=== PATIENT | male | born 1960 | race Caucasian/White ===

== ENCOUNTER 2021-08-31 14:03 | Day surgery (SDC) | payer OTHER ==
[2021-08-24 09:24] VITALS: BMI 35.1
[2021-08-31] MEDS: CELECOXIB 200 MG CAPSULE PO ONE ×2 (06:45→13:01)
[2021-08-31] MEDS: ACETAMINOPHEN 500 MG TABLET (FP) PO SCH ×3 (11:00→20:13)
[2021-08-31] MEDS: SENNOSIDES/DOCUSATE COMBO (SENNA PLUS) TABLET (UD) PO SCH ×2 (13:01→22:04)
[2021-08-31] MEDS: RAMIPRIL 5 MG CAPSULE PO SCH (13:01)
[2021-08-31] MEDS: PANTOPRAZOLE 40 MG TABLET PO SCH (13:02)
[2021-08-31] MEDS: INSULIN SLIDING SCALE (NOVOLOG) 1 VIAL SQ SCH ×3 (13:02→22:03)
[2021-08-31] MEDS: MULTIVITAMINS (DAILY MVI) TABLET (FP) PO SCH (13:02)
[~2021-08-31 14:03] MED LIST: ACETAMINOPHEN 1000 MG/100 ML VIAL IVPB ONE; ACETAMINOPHEN INJECTION 100 ML IVPB ONE; CEFAZOLIN 3 GM in DEXTROSE 5%-WATER - 100 ML IVPB ONE; LACTATED RINGERS SOLUTION 1,000 ML IV SCH; MAG HYDROX/AL HYDROX/SIMETH 30 ML UNIT-DOSE CUP PO PRN; MAGNESIUM HYDROX 2400MG/30ML ORAL SUSPENSION 30 ML CUP PO PRN; MIDAZOLAM HCL 2 MG/2 ML SINGLE DOSE VIAL ONE; ONDANSETRON 4 MG/2 ML VIAL IVPUSH PRN; PROPOFOL 20 ML ONE; ROPIVACAINE HCL 0.5% 30ML VIAL ONE; TRANEXAMIC ACID 1000 MG/10 ML VIAL IVPUSH ONE; ePHEDrine SULFATE 50 MG/1 ML AMPULE ONE
[2021-08-31] MEDS: metFORMIN HCL 500 MG TABLET (FP) PO SCH (16:02)
[2021-08-31] MEDS: KETOROLAC TROMETHAMINE 30 MG/1 ML VIAL IVPUSH SCH ×2 (16:02→21:58)
[2021-08-31] MEDS ORDERED: REFRIGERATED ANITBIOTICS ONE (16:06)
[2021-08-31] MEDS: CEFAZOLIN 3 GM in DEXTROSE 5%-WATER - 100 ML IVPB SCH (16:08)
[2021-08-31] MEDS: oxyCODONE HCL 5 MG TABLET PO PRN (20:46)
[2021-08-31] MEDS: ATORVASTATIN CA 80 MG TABLET (FP) PO SCH (21:58)
[2021-09-01] MEDS ORDERED: REFRIGERATED ANITBIOTICS ONE (00:14)
[2021-09-01] MEDS: ACETAMINOPHEN 500 MG TABLET (FP) PO SCH ×5 (00:16→23:53)
[2021-09-01] MEDS: CEFAZOLIN 3 GM in DEXTROSE 5%-WATER - 100 ML IVPB SCH (00:17)
[2021-09-01] MEDS: oxyCODONE HCL 5 MG TABLET PO PRN ×6 (05:22→22:52)
[2021-09-01] MEDS: metFORMIN HCL 500 MG TABLET (FP) PO SCH ×2 (06:02→17:13)
[2021-09-01] MEDS: INSULIN SLIDING SCALE (NOVOLOG) 1 VIAL SQ SCH ×4 (06:08→21:57)
[2021-09-01] MEDS: ASPIRIN 325 MG TABLET PO SCH (07:45)
[2021-09-01 08:40] LABS: HEMATOCRIT 35.3 % (35.4-49); HEMOGLOBIN 11.8 GM/dl (11.7-16.9); MCH 27.9 pg (25.7-33.7); MCHC 33.3 g/dl (32.0-35.9); MEAN CELL VOLUME 83.9 fl (80-96); MEAN PLT VOLUME 9.8 fl (7.5-11.1); PLATELET COUNT 187 10^3/uL (134-434); RBC 4.21 M/mm3 (4.00-5.60); RDW 13.8 % (11.9-15.9); WHITE BLOOD COUNT 10.2 K/mm3 (4.0-10.8)
[2021-09-01] MEDS: PANTOPRAZOLE 40 MG TABLET PO SCH (10:20)
[2021-09-01] MEDS: RAMIPRIL 5 MG CAPSULE PO SCH (10:20)
[2021-09-01] MEDS: SENNOSIDES/DOCUSATE COMBO (SENNA PLUS) TABLET (UD) PO SCH ×2 (10:20→21:53)
[2021-09-01] MEDS: MULTIVITAMINS (DAILY MVI) TABLET (FP) PO SCH (10:20)
[2021-09-01] MEDS: ATORVASTATIN CA 80 MG TABLET (FP) PO SCH (21:53)
[2021-09-02] MEDS: oxyCODONE HCL 5 MG TABLET PO PRN ×4 (04:48→16:53)
[2021-09-02] MEDS: ACETAMINOPHEN 500 MG TABLET (FP) PO SCH ×2 (06:19→12:24)
[2021-09-02] MEDS: metFORMIN HCL 500 MG TABLET (FP) PO SCH ×2 (06:19→16:57)
[2021-09-02] MEDS: INSULIN SLIDING SCALE (NOVOLOG) 1 VIAL SQ SCH ×3 (06:48→16:57)
[2021-09-02] MEDS: ASPIRIN 325 MG TABLET PO SCH (08:03)
[2021-09-02 08:19] LABS: HEMATOCRIT 34.4 % (35.4-49); HEMOGLOBIN 11.1 GM/dl (11.7-16.9); MCH 27.6 pg (25.7-33.7); MCHC 32.2 g/dl (32.0-35.9); MEAN CELL VOLUME 85.6 fl (80-96); MEAN PLT VOLUME 9.7 fl (7.5-11.1); PLATELET COUNT 186 10^3/uL (134-434); RBC 4.02 M/mm3 (4.00-5.60); RDW 14.3 % (11.9-15.9); WHITE BLOOD COUNT 9.9 K/mm3 (4.0-10.8)
[2021-09-02] MEDS: PANTOPRAZOLE 40 MG TABLET PO SCH (09:47)
[2021-09-02] MEDS: RAMIPRIL 5 MG CAPSULE PO SCH (09:47)
[2021-09-02] MEDS: SENNOSIDES/DOCUSATE COMBO (SENNA PLUS) TABLET (UD) PO SCH (09:47)
[2021-09-02] MEDS: MULTIVITAMINS (DAILY MVI) TABLET (FP) PO SCH (09:47)
[2021-09-02 14:13] VITALS: BP 117/70; PULSE 85; TEMP 98.6
== END 2021-09-02 18:00 | disposition home health service (06) ==
LOC: FM/S 14:03 → FASUSAT 14:03
PROVIDERS: ATTEND Orthopaedic Surgery
PROC: 8E0YXBZ Computer Assisted Procedure of Lower Extremity (ICD-10-PCS; 2021-08-31)
PROC: 8E0Y0CZ Robotic Assisted Procedure of Lower Extremity, Open Approach (ICD-10-PCS; 2021-08-31)
PROC: 0SRD0J9 Replacement of Left Knee Joint with Synthetic Substitute, Cemented, Open Approach (ICD-10-PCS; principal; 2021-08-31 08:40)
DX: M17.0 Bilateral primary osteoarthritis of knee (principal); I10 Essential (primary) hypertension; E11.9 Type 2 diabetes mellitus without complications; E78.5 Hyperlipidemia, unspecified; Z79.82 Long term (current) use of aspirin; Z79.84 Long term (current) use of oral hypoglycemic drugs
CPT/HCPCS: 20985; 27447; C1776; S2900; 36415; 73560-TC-LT-FY; 82962; 85027; 94010; 94760; 97010-GP; 97116-GP; 97163-GP; C9803; J0131; U0003; U0005

== ENCOUNTER 2023-05-02 06:09 | Day surgery (SDC) | payer OTHER ==
[2023-04-28 11:16] VITALS: BMI 41.8
[2023-05-02] MEDS ORDERED: CELECOXIB 200 MG CAPSULE ONE (06:32)
[2023-05-02] MEDS ORDERED: ceFAZolin SODIUM 1 GM VIAL ONE ×3 (07:19→12:47)
[2023-05-02] MEDS ORDERED: VANCOMYCIN 1,000 MG VIAL (RESTRICTED TO ID ONLY) ONE (07:20)
[2023-05-02] MEDS ORDERED: MIDAZOLAM HCL 2 MG/2 ML SINGLE DOSE VIAL ONE ×7 (07:43→12:37)
[2023-05-02] MEDS ORDERED: BUPIVACAINE HCL/PF 0.5% (5MG/ML) 10 ML VIAL ONE (07:43)
[2023-05-02] MEDS ORDERED: BUPIVACAINE LIPOSOME/PF (EXPAREL) 266 MG/20 ML VIAL ONE (07:43)
[2023-05-02] MEDS ORDERED: ONDANSETRON 4 MG/2 ML VIAL IVPUSH PRN ×2 (07:56→11:20)
[2023-05-02] MEDS ORDERED: MAG HYDROX/AL HYDROX/SIMETH 30 ML UNIT-DOSE CUP PO PRN (07:56)
[2023-05-02] MEDS ORDERED: LACTATED RINGERS SOLUTION 1,000 ML IV SCH ×2 (08:00→11:30)
[2023-05-02] MEDS ORDERED: CEFAZOLIN 2 GM in DEXTROSE 5%-WATER - 50 ML IVPB ONE (08:00)
[2023-05-02] MEDS ORDERED: CELECOXIB 200 MG CAPSULE PO ONE (08:00)
[2023-05-02] MEDS ORDERED: TRANEXAMIC ACID 1000 MG/10 ML VIAL ONE ×3 (08:29→12:50)
[2023-05-02] MEDS ORDERED: DEXAMETHASONE SOD PHOSPHATE 4 MG/1 ML VIAL ONE ×2 (08:45→12:38)
[2023-05-02] MEDS ORDERED: TRANEXAMIC ACID 1000 MG/10 ML VIAL IVPUSH ONE (09:00)
[2023-05-02] MEDS ORDERED: PROPOFOL 20 ML ONE ×4 (09:05→13:42)
[2023-05-02] MEDS ORDERED: RAMIPRIL 5 MG CAPSULE PO SCH (10:00)
[2023-05-02] MEDS ORDERED: MULTIVITAMINS (DAILY MVI) TABLET (FP) PO SCH (10:00)
[2023-05-02] MEDS ORDERED: PANTOPRAZOLE 40 MG TABLET PO SCH (10:00)
[2023-05-02] MEDS ORDERED: PHENYLEPHRINE HCL 10 MG/1 ML SINGLE DOSE VIAL ONE (10:30)
[2023-05-02] MEDS ORDERED: oxyCODONE HCL 5 MG TABLET PO PRN (11:20)
[2023-05-02] MEDS ORDERED: ACETAMINOPHEN 1000 MG/100 ML BAG IVPB ONE (11:20)
[2023-05-02] MEDS ORDERED: ONDANSETRON 4 MG/2 ML VIAL ONE (12:38)
[2023-05-02] MEDS: KETOROLAC TROMETHAMINE 30 MG/1 ML VIAL IVPUSH SCH ×2 (15:02→21:32)
[2023-05-02] MEDS: CEFAZOLIN 3 GM in DEXTROSE 5%-WATER - 100 ML IVPB SCH (17:58)
[2023-05-02] MEDS: metFORMIN HCL 500 MG TABLET (FP) PO SCH (18:00)
[2023-05-02] MEDS: SENNOSIDES/DOCUSATE COMBO (SENNA PLUS) TABLET (UD) PO SCH ×2 (20:57→21:04)
[2023-05-02] MEDS ORDERED: oxyCODONE HCL 10 MG SUSTAINED ACTING TABLET PO SCH (22:00)
[2023-05-02] MEDS ORDERED: ATORVASTATIN CA 10 MG TABLET (FP) PO SCH (22:00)
[2023-05-03] MEDS: CEFAZOLIN 3 GM in DEXTROSE 5%-WATER - 100 ML IVPB SCH (00:08)
[2023-05-03] MEDS: oxyCODONE HCL 5 MG TABLET PO PRN ×3 (06:50→16:52)
[2023-05-03] MEDS: metFORMIN HCL 500 MG TABLET (FP) PO SCH ×2 (06:50→16:52)
[2023-05-03 07:48] LABS: HEMATOCRIT 36.5 % (35.4-49); HEMOGLOBIN 12.1 G/dL (11.7-16.9); MEAN CELL VOLUME 84.9 fl (80-96); MEAN PLT VOLUME 10.1 fl (7.5-11.1); PLATELET COUNT 204.4 10^3/uL (134-434); RDW 14.3 % (11.9-15.9); WHITE BLOOD COUNT 9.2 10^3/uL (4.0-10.8)
[2023-05-03] MEDS ORDERED: ASPIRIN 325 MG TABLET PO SCH (08:00)
[2023-05-03] MEDS: SENNOSIDES/DOCUSATE COMBO (SENNA PLUS) TABLET (UD) PO SCH (09:00)
[2023-05-03] MEDS ORDERED: THIAMINE HCL 100 MG TABLET (FP) PO SCH (10:00)
[2023-05-03 14:13] VITALS: BP 137/60; PULSE 92; RESP 19
[2023-05-03 14:19] VITALS: TEMP 98.2
== END 2023-05-03 18:04 | disposition short-term general hospital (02) ==
LOC: FASUSAT 06:09 → FM/S 12:03 → FASUSAT 05-03 18:04
PROVIDERS: ATTEND Orthopaedic Surgery
PROC: 8E0Y0CZ Robotic Assisted Procedure of Lower Extremity, Open Approach (ICD-10-PCS; 2023-05-02)
PROC: 0SRC0J9 Replacement of Right Knee Joint with Synthetic Substitute, Cemented, Open Approach (ICD-10-PCS; principal; 2023-05-02 08:38)
DX: M17.11 Unilateral primary osteoarthritis, right knee (principal)
CPT/HCPCS: 20985; 27447; C1776; S2900; 36415; 73560-TC-RT-FY; 82962; 85027; 87635; 94760; 97116-GP; 97162-GP; C1713; C1889

== ENCOUNTER 2024-02-12 16:03 | Observation (INO) | payer OTHER ==
[2024-02-12] MEDS ORDERED: ACETAMINOPHEN INJECTION 100 ML IVPB ONE (17:14)
[2024-02-12 17:24] LABS: HEMATOCRIT 40.6 % (35.4-49); HEMOGLOBIN 13.2 G/dL (11.7-16.9); MCH 26.4 pg (25.7-33.7); MCHC 32.6 g/dl (32.0-35.9); MEAN PLT VOLUME 10.5 fl (7.5-11.1); RBC 5.01 10^6/uL (4.00-5.60); RDW 16.7 % (11.9-15.9); WHITE BLOOD COUNT 10.8 10^3/uL (4.0-10.8)
[2024-02-12] MEDS: ACETAMINOPHEN 1000 MG/100 ML BAG IVPB ONE (17:25)
[2024-02-12 17:26] LABS: INR 1.35 (0.83-1.09); PROTHROMBIN TIME (PATIENT) 15.6 SEC (9.7-13.0)
[2024-02-12 17:36] LABS: ALBUMIN 3.8 g/dl (3.4-5.0); BILIRUBIN,TOTAL 0.7 mg/dl (0.2-1); CALCIUM 9.2 mg/dl (8.5-10.1); CREATININE 0.9 mg/dl (0.6-1.3); MAGNESIUM 1.6 mg/dL (1.8-2.4); POTASSIUM 4.2 mmol/L (3.5-5.1); TOT PROT 6.7 g/dl (6.4-8.2)
[2024-02-12 17:43] LABS: PLATELET ESTIMATE ADEQUATE
[2024-02-12] MEDS: SODIUM CHLORIDE 0.9% 500 ML INFUS.BAG IV ONE ×2 (18:30→20:20)
[2024-02-12] MEDS ORDERED: MAGNESIUM 1GM/D5W - 1 GM/100 ML IVPB IVPB ONE (19:03)
[2024-02-12] MEDS: MAGNESIUM 1GM/D5W - 1 GM/100 ML IVPB IVPB ONE (19:15)
[2024-02-12 23:05] VITALS: BMI 33.7
[2024-02-12] MEDS: FUROSEMIDE 40 MG/4 ML INJECTABLE VIAL IVPUSH ONE (23:33)
[2024-02-13 01:34] LABS: N-TERMINAL BNP 151.3 pg/ml (5-125)
[2024-02-13 08:08] LABS: EPITHELIAL CELLS 0-5 /hpf
[2024-02-13 08:46] LABS: CALCIUM 8.6 mg/dl (8.5-10.1)
[2024-02-13 09:19] LABS: BASO % 0.7 % (0-2.0); HEMATOCRIT 36.5 % (35.4-49); HEMOGLOBIN 11.8 GM/dL (11.7-16.9); LYMPH % 15.1 % (8-40); MCH 26.1 pg (25.7-33.7); MCHC 32.3 g/dl (32.0-35.9); MEAN CELL VOLUME 80.8 fl (80-96); MEAN PLT VOLUME 10.2 fl (7.5-11.1); MONO % 8.8 % (3.8-10.2); NEUT % 70.4 % (42.8-82.8); PLATELET COUNT 235 10^3/uL (134-434); RBC 4.52 M/mm3 (4.00-5.60); RDW 17.2 % (11.9-15.9); WHITE BLOOD COUNT 8.3 K/mm3 (4.0-10.0)
[2024-02-13] MEDS: ACETAMINOPHEN 325 MG TABLET (FP) PO PRN (09:19)
[2024-02-13] MEDS: LIDOCAINE 5% TOPICAL PATCH TP SCH (09:20)
[2024-02-13] MEDS: FUROSEMIDE 40 MG/4 ML INJECTABLE VIAL IVPUSH SCH (09:20)
[2024-02-13] MEDS: NYSTATIN POWDER 100,000 UNITS/GM - 15 GM TOPICAL POWDER TP SCH (13:11)
[2024-02-13] MEDS: MAGNESIUM 1GM/D5W 100ML - 100 ML IVPB IVPB ONE (16:23)
[2024-02-13] MEDS: LIDOCAINE PATCH REMOVAL MC SCH (21:23)
[2024-02-14 03:05] VITALS: RESP 18
[2024-02-14 09:32] VITALS: BP 130/70; PULSE 74; TEMP 98.4
== END 2024-02-14 13:25 ==
LOC: FER 16:03 → INTOOBSV 20:06 → FM/S 20:06
PROVIDERS: ADMIT Internal Medicine
PROC: 3E033NZ Introduction of Analgesics, Hypnotics, Sedatives into Peripheral Vein, Percutaneous Approach (ICD-10-PCS; principal; 2024-02-12)
PROC: 3E033GC Introduction of Other Therapeutic Substance into Peripheral Vein, Percutaneous Approach (ICD-10-PCS; 2024-02-12)
PROC: 3E033GC Introduction of Other Therapeutic Substance into Peripheral Vein, Percutaneous Approach (ICD-10-PCS; 2024-02-12)
PROC: 3E033GC Introduction of Other Therapeutic Substance into Peripheral Vein, Percutaneous Approach (ICD-10-PCS; 2024-02-12)
PROC: 3E0337Z Introduction of Electrolytic and Water Balance Substance into Peripheral Vein, Percutaneous Approach (ICD-10-PCS; 2024-02-12)
PROC: 3E033GC Introduction of Other Therapeutic Substance into Peripheral Vein, Percutaneous Approach (ICD-10-PCS; 2024-02-12)
PROC: 3E0337Z Introduction of Electrolytic and Water Balance Substance into Peripheral Vein, Percutaneous Approach (ICD-10-PCS; 2024-02-12)
DX: M54.50 Low back pain, unspecified (principal); M79.661 Pain in right lower leg; M19.90 Unspecified osteoarthritis, unspecified site; R32 Unspecified urinary incontinence; W18.39XA Other fall on same level, initial encounter; Y93.89 Activity, other specified; Y92.001 Dining room of unspecified non-institutional (private) residence as the place of occurrence of the external cause; G89.29 Other chronic pain; E78.5 Hyperlipidemia, unspecified; E11.9 Type 2 diabetes mellitus without complications; E66.01 Morbid (severe) obesity due to excess calories; R26.81 Unsteadiness on feet; B37.89 Other sites of candidiasis; I50.9 Heart failure, unspecified; I11.0 Hypertensive heart disease with heart failure; I89.0 Lymphedema, not elsewhere classified; G47.33 Obstructive sleep apnea (adult) (pediatric); R53.1 Weakness; E83.42 Hypomagnesemia; E78.00 Pure hypercholesterolemia, unspecified; M79.662 Pain in left lower leg
CPT/HCPCS: 0241U-QW; 36415; 71045-TC-FY; 72131-TC; 72170-TC-FY; 80048; 80053; 80061; 81003; 81015; 82550; 82553; 83036; 83735; 83880; 84443; 84450; 84484; 85025; 85610; 85730; 87086; 87186; 93005; 93970-TC; 96365; 96375; 96376; 97116-GP; 97162-GP; 99285-25; G0378; J0131